=== PATIENT | male | born 1965 | race Caucasian/White ===

== ENCOUNTER 2019-11-15 04:56 | Emergency (ER) | payer SELFPAY ==
[~2019-11-15] VITALS: Ht 175.3 cm; Wt 78.0 kg
[2019-11-15 04:59] VITALS: BP 117/61
--- NOTE | 2019-11-15 05:05 | NUR ---
PT PRESENTS TO THE ED VIA EMS AFTER HE WAS FOUND UNABLE TO AMBULATE OUTSIDE A CASINO. PT STATES "I DRINK A LOT" "STRAIGHT VODKA." PT KNOWS WHO HE IS AND THAT HE'S DRUNK. DOESN'T KNOW WHERE HE IS. PT LAYING IN [facility], CONNECED TO CARDIAC, BP AND O2 MONITORS. URINAL IN REACH. LIGHTS OFF TO PROMOTE REST. BED RAILS UP X2, CALL LIGHT IN REACH.
--- NOTE | 2019-11-15 06:03 | NUR ---
PRIOR TO D/C, PT WAS MASTERBATTING. STATES "I WANT TO GET THE F OUT FO HERE." PULLED OUT A BOTTLE OF VODKA TO ATTEMPT TO START DRINKING WHILE IN THE HOSPITAL. PT DID NOT CONSUME ALCOHOL ON PROPERTY. PT AMBULATROY AROUND UNIT AFTER HE REMOVED ALL OF HIS LEADS AND DISCONNECTED SELF FROM MONITORS.
== END 2019-11-15 06:02 | disposition home or self-care (01) ==
LOC: ED 05:51
DX: F10.220 Alcohol dependence with intoxication, uncomplicated (principal); Y90.0 Blood alcohol level of less than 20 mg/100 ml
CPT/HCPCS: 99283

== ENCOUNTER 2020-03-13 11:27 | Emergency (ER) | payer MEDICAID ==
[~2020-03-13] VITALS: Ht 175.3 cm; Wt 72.0 kg
[2020-03-13] MEDS ORDERED: SODIUM CHLORIDE FLUSH 10ML SYR IVF ONE (12:00)
[2020-03-13] MEDS ORDERED: SODIUM CHLORIDE 0.9% 1,000ML IVBOLUS ONE (12:00)
[2020-03-13] MEDS ORDERED: ADENOSINE 6 MG/2 ML IVPush ONE ×2 (12:00)
[2020-03-13] MEDS ORDERED: PLEASE ENTER HEIGHT AND WEIGHT MC SCH (12:00)
[2020-03-13 12:06] LABS: BASOPHILS % (AUTO) 1 % (0-1); EOSINOPHILS % (AUTO) 1 % (1-7); LYMPHOCYTES % (AUTO) 27 % (22-44); MEAN CORPUSCULAR HEMOGLOBIN 25.1 pg (27.5-34.5); MEAN CORPUSCULAR HGB CONC 32.5 g/dL (33.2-36.2); MEAN PLATELET VOLUME 8.4 fL (7.4-10.4); MONOCYTES % (AUTO) 9 % (2-9); NEUTROPHILS % (AUTO) 62 % (42-75); PLATELET COUNT 420 x10^3/uL (130-400); RED CELL DISTRIBUTION WIDTH 20.7 % (9.4-14.8)
[2020-03-13 12:07] LABS: MD NO
[2020-03-13 12:17] LABS: ALBUMIN 3.5 g/dL (3.4-5.0); ANION GAP 6 mmol/L (5-15); CALCIUM 9.5 mg/dL (8.5-10.1); CHLORIDE 108 mmol/L (98-107)
[2020-03-13 12:22] LABS: ALANINE AMINOTRANSFERASE 18 U/L (12-78); ALKALINE PHOSPHATASE 57 U/L (45-117); BILIRUBIN,TOTAL 0.4 mg/dL (0.2-1.0); CREATININE 1.12 mg/dL (0.7-1.3); TOTAL PROTEIN 7.4 g/dL (6.4-8.2); TROPONIN I < 0.015 ng/mL (0.000-0.045)
[2020-03-13 13:27] VITALS: BP 103/71
== END 2020-03-13 19:55 ==
LOC: ED 14:48
DX: I47.1 Supraventricular tachycardia (principal); I48.91 Unspecified atrial fibrillation; R42 Dizziness and giddiness
CPT/HCPCS: 36415; 80053; 83735; 84443; 84484; 85025; 93005; 96360; 99284; J7030

== ENCOUNTER 2020-10-12 07:44 | Inpatient (IN) | payer MEDICAID ==
[~2020-10-12] VITALS: Ht 175.3 cm; Wt 74.2 kg
--- NOTE | 2020-10-12 07:49 | NUR ---
PT BIB EMS FOR CP, ETOH AND METH USE. STARTED THIS AM W NAUSEA. HX OF ETOH, HTN, SVT, NONCOMPLIANT W MEDS, METOPROLOL. PT ON CARD MONITOR, EKG IN PROCESS 4MG ZOFRAN 324 ASA BY EMS
[2020-10-12] MEDS ORDERED: THIAMINE 100MG TABLET PO ONE (08:00)
[2020-10-12] MEDS ORDERED: NITROGLYCERIN SINGLE TAB 0.4 MG SL PRN (08:00)
[2020-10-12] MEDS ORDERED: SODIUM CHLORIDE FLUSH 10ML SYR IVF ONE (08:00)
[2020-10-12] MEDS ORDERED: SODIUM CHLORIDE 0.9% 1,000 ML IV ONE ×2 (08:00→10:30)
[2020-10-12] MEDS ORDERED: ASPIRIN 81 MG TABLET CHEW PO ONE (08:00)
[2020-10-12] MEDS ORDERED: LORazepam 2 MG/ML, 1ML IVPush ONE (08:00)
[2020-10-12] MEDS ORDERED: LORazepam 2 MG/ML, 1ML ONE (08:09)
--- NOTE | 2020-10-12 08:16 | NUR ---
PT TREMULOUS, ANXIOUS. CXR, LABS DONE
[2020-10-12 08:24] LABS: BASOPHILS % (AUTO) 1 % (0-1); EOSINOPHILS % (AUTO) 1 % (1-7); LYMPHOCYTES % (AUTO) 19 % (22-44); MEAN CORPUSCULAR HEMOGLOBIN 28.5 pg (27.5-34.5); MEAN CORPUSCULAR HGB CONC 33.9 g/dL (33.2-36.2); MEAN PLATELET VOLUME 7.7 fL (7.4-10.4); MONOCYTES % (AUTO) 7 % (2-9); NEUTROPHILS % (AUTO) 72 % (42-75); PLATELET COUNT 276 x10^3/uL (130-400); RED BLOOD COUNT 4.67 x10^6/uL (4.38-5.82); RED CELL DISTRIBUTION WIDTH 18.1 % (9.4-14.8)
[2020-10-12 08:35] LABS: ALANINE AMINOTRANSFERASE 86 U/L (12-78); ALBUMIN 3.5 g/dL (3.4-5.0); ANION GAP 10 mmol/L (5-15); CALCIUM 9.1 mg/dL (8.5-10.1); CHLORIDE 108 mmol/L (98-107); CREATININE 0.85 mg/dL (0.7-1.3)
[2020-10-12 08:40] LABS: ALKALINE PHOSPHATASE 93 U/L (45-117); BILIRUBIN,TOTAL 0.6 mg/dL (0.2-1.0); TOTAL PROTEIN 7.5 g/dL (6.4-8.2); TROPONIN I 0.041 ng/mL (0.000-0.045)
--- NOTE | 2020-10-12 09:08 | NUR ---
PT SLEEPING AT THIS TIME. STATES CHEST PAIN IS BETTER. MD AT BEDSIDE
[2020-10-12] MEDS ORDERED: SODIUM CHLORIDE FLUSH 10ML SYR IVF PRN (10:30)
[2020-10-12] MEDS ORDERED: LORazepam 2 MG/ML, 1ML IVPush PRN (11:30)
[2020-10-12] MEDS ORDERED: ACETAMINOPHEN 325 MG TABLET PO PRN (11:30)
[2020-10-12] MEDS ORDERED: ONDANSETRON ODT 4 MG PO PRN (11:30)
[2020-10-12] MEDS ORDERED: POTASSIUM CHLORIDE 20 MEQ TAB.ER.PRT PO ONE (11:30)
[2020-10-12] MEDS ORDERED: ENALAPRILAT 1.25 MG/ML, 2ML IVPush PRN (11:30)
[2020-10-12] MEDS ORDERED: morphine SULFATE 10 MG/ML, 1ML IVPush PRN (11:30)
[2020-10-12] MEDS ORDERED: ONDANSETRON 2MG/ML, 2ML IVPush PRN (11:30)
[2020-10-12 11:51] LABS: TROPONIN I 0.036 ng/mL (0.000-0.045)
[2020-10-12 12:30] VITALS: BP 183/111
[2020-10-12] MEDS: METOPROLOL TARTRATE 25 MG TAB PO SCH ×2 (12:57→21:54)
[2020-10-12 14:55] VITALS: BP 169/106
[2020-10-12 17:04] LABS: TROPONIN I 0.035 ng/mL (0.000-0.045)
[2020-10-12 19:37] VITALS: BP 159/102
[2020-10-12 21:51] VITALS: BP 176/119
[2020-10-13] MEDS ORDERED: ENALAPRILAT 1.25 MG/ML, 1ML ONE (03:37)
[2020-10-13 03:38] VITALS: BP 168/109
[2020-10-13 05:09] VITALS: BP 164/104
[2020-10-13] MEDS: METOPROLOL TARTRATE 25 MG TAB PO SCH (05:11)
[2020-10-13 05:18] LABS: BASOPHILS % (AUTO) 1 % (0-1); EOSINOPHILS % (AUTO) 2 % (1-7); LYMPHOCYTES % (AUTO) 27 % (22-44); MEAN CORPUSCULAR HEMOGLOBIN 28.3 pg (27.5-34.5); MEAN CORPUSCULAR HGB CONC 33.1 g/dL (33.2-36.2); MEAN PLATELET VOLUME 7.9 fL (7.4-10.4); MONOCYTES % (AUTO) 11 % (2-9); NEUTROPHILS % (AUTO) 59 % (42-75); PLATELET COUNT 245 x10^3/uL (130-400); RED BLOOD COUNT 5.08 x10^6/uL (4.38-5.82)
[2020-10-13 05:31] LABS: ALBUMIN 3.5 g/dL (3.4-5.0); ANION GAP 4 mmol/L (5-15); CALCIUM 9.6 mg/dL (8.5-10.1); CHLORIDE 104 mmol/L (98-107)
[2020-10-13 05:36] LABS: ALANINE AMINOTRANSFERASE 74 U/L (12-78); ALKALINE PHOSPHATASE 100 U/L (45-117); BILIRUBIN,TOTAL 1.3 mg/dL (0.2-1.0); CREATININE 0.85 mg/dL (0.7-1.3); TOTAL PROTEIN 7.7 g/dL (6.4-8.2)
[2020-10-13] MEDS ORDERED: REGADENOSON 0.4 MG/5 ML SYRINGE ONE (07:41)
[2020-10-13 07:49] VITALS: BP 136/80
[2020-10-13] MEDS ORDERED: SENNA/DOCUSATE TABLET PO SCH (09:00)
[2020-10-13] MEDS ORDERED: ASPIRIN 325 MG TABLET PO SCH (09:00)
[2020-10-13 14:56] VITALS: BP 165/90
== END 2020-10-13 15:01 | disposition home or self-care (01) | DRG 198 ==
LOC: SUATTDRO 09:36 → ED 09:45 → EDIP 10:01 → INTOOBSV 10:01 → 5SO 12:24 → OBSVTOIN 10-13 10:12
PROVIDERS: ADMIT Hospitalist; ATTEND Hospitalist
DX: I20.0 Unstable angina (principal); I48.91 Unspecified atrial fibrillation; F15.129 Other stimulant abuse with intoxication, unspecified; F10.239 Alcohol dependence with withdrawal, unspecified; F41.9 Anxiety disorder, unspecified; I10 Essential (primary) hypertension; Z91.19 Patient's noncompliance with other medical treatment and regimen; Y90.9 Presence of alcohol in blood, level not specified
CPT/HCPCS: 36415; 71045; 78452; 80053; 83735; 83880; 84484; 85025; 93005; 93017; 93306; G0378; J2785; A9502; J2060; J7030

== ENCOUNTER 2020-10-15 07:05 | Emergency (ER) | payer MEDICAID ==
[~2020-10-15] VITALS: Ht 175.3 cm; Wt 77.3 kg
[2020-10-15] MEDS ORDERED: ASPIRIN 81 MG TABLET CHEW PO ONE (07:30)
[2020-10-15] MEDS ORDERED: LORazepam 1MG TABLET PO ONE (07:30)
[2020-10-15] MEDS ORDERED: LORazepam 1MG TABLET ONE (07:51)
[2020-10-15] MEDS ORDERED: ASPIRIN 81 MG TABLET CHEW ONE (07:51)
--- NOTE | 2020-10-15 07:56 | NUR ---
BIB EMS, PT C/O SHAKY, ABD PAIN, HEART RACING AFTER SNORTING METH AND DRINKING ALCOHOL. PT VERBALIZES "I BOUGHT WHAT LOOKED LIKE METH BUT WHEN I SNORTED IT IT WASN'T METH" "I DON'T KNOW WHAT IT WAS" ALEXANDRA, ED PA AT BEDSIDE, PT ASSESSMENT, POC DISCUSSED AND QUESTIONS ANSWERED. ALL MONITORS IN PLACE AND EKG COMPLETED. CALL LIGHT W/I REACH. PT MED NOTED AND LIGHTS OFF PER PT REQUEST.
[2020-10-15 08:03] LABS: BASOPHILS % (AUTO) 1 % (0-1); EOSINOPHILS % (AUTO) 1 % (1-7); LYMPHOCYTES % (AUTO) 19 % (22-44); MEAN CORPUSCULAR HEMOGLOBIN 28.2 pg (27.5-34.5); MEAN CORPUSCULAR HGB CONC 33.4 g/dL (33.2-36.2); MEAN PLATELET VOLUME 7.8 fL (7.4-10.4); MONOCYTES % (AUTO) 8 % (2-9); NEUTROPHILS % (AUTO) 71 % (42-75); PLATELET COUNT 230 x10^3/uL (130-400); RED BLOOD COUNT 4.58 x10^6/uL (4.38-5.82); RED CELL DISTRIBUTION WIDTH 17.9 % (9.4-14.8)
[2020-10-15 08:15] LABS: ALBUMIN 3.7 g/dL (3.4-5.0); ANION GAP 10 mmol/L (5-15); CALCIUM 8.8 mg/dL (8.5-10.1); CHLORIDE 105 mmol/L (98-107)
[2020-10-15 08:21] LABS: ALANINE AMINOTRANSFERASE 65 U/L (12-78); ALKALINE PHOSPHATASE 92 U/L (45-117); BILIRUBIN,TOTAL 0.6 mg/dL (0.2-1.0); CREATININE 0.69 mg/dL (0.7-1.3); TOTAL PROTEIN 7.4 g/dL (6.4-8.2); TROPONIN I < 0.015 ng/mL (0.000-0.045)
--- NOTE | 2020-10-15 08:37 | NUR ---
PT SLEEPING, RESP EVEN, NON LABORED. NAD NOTED. VSS, SP02 = 98% ON 2L NC
[2020-10-15 09:05] VITALS: BP 157/97
--- NOTE | 2020-10-15 09:06 | NUR ---
Patient/Caregiver given discharge instructions and they have confirmed that they understand the instructions. Patient ambulatory with steady gait. NAD, all questions answered appropriately, denies additional needs at this time. No personal belongings left in room after discharge.
== END 2020-10-15 09:07 | disposition home or self-care (01) ==
LOC: ED 07:30
DX: F10.20 Alcohol dependence, uncomplicated (principal); F15.20 Other stimulant dependence, uncomplicated; R07.89 Other chest pain; R10.84 Generalized abdominal pain; R11.0 Nausea; I10 Essential (primary) hypertension; I48.91 Unspecified atrial fibrillation; I47.1 Supraventricular tachycardia; Y90.0 Blood alcohol level of less than 20 mg/100 ml
CPT/HCPCS: 36415; 71045; 80053; 84484; 85025; 93005; 99285

== ENCOUNTER 2020-10-21 10:30 | Emergency (ER) | payer MEDICAID ==
[~2020-10-21] VITALS: Ht 175.3 cm; Wt 75.0 kg
--- NOTE | 2020-10-21 10:35 | NUR ---
PT BIB [facility] FROM THE [facility] FOR SI. PT STATES HE WANTS TO HARM HIMSELF AND PLANS TO DRINK HIMSELF TO , PT ALSO STATES HE WANTS TO SHOOT HIMSELF BUT DOES NOT CURRENTLY HAD ACCESS TO A GUN. PT LAST DRINK WAS LAST NIGHT PRIOR TO GOING TO [facility]. PT TACHY ON MONITOR. AXOX4. PT BELONGINGS IN BAG. [facility] AT . MONITORS CONNECTED. PT IN SAFE ENVIRONMENT. SITTER IN VIEW.
--- NOTE | 2020-10-21 10:38 | NUR ---
PA AT BS FOR EVAL
--- NOTE | 2020-10-21 10:50 | NUR ---
XRAY AT BS
[2020-10-21] MEDS ORDERED: ONDANSETRON 2MG/ML, 2ML IVPush ONE (11:00)
[2020-10-21] MEDS ORDERED: SODIUM CHLORIDE 0.9% 1,000ML IVBOLUS ONE (11:00)
[2020-10-21] MEDS ORDERED: SODIUM CHLORIDE FLUSH 10ML SYR IVF ONE (11:00)
[2020-10-21] MEDS ORDERED: LORazepam 2 MG/ML, 1ML IVPush ONE ×2 (11:00→14:00)
[2020-10-21] MEDS ORDERED: ONDANSETRON 2MG/ML, 2ML ONE (11:25)
[2020-10-21] MEDS ORDERED: LORazepam 2 MG/ML, 1ML ONE ×2 (11:26→13:56)
--- NOTE | 2020-10-21 11:30 | NUR ---
PT MEDICATED PER EMAR. NADN. SINUS TACH ON MONITOR OTHER VITALS STABLE. BED IN LOWEST POSITION, PT IN SAFE ENVIRONMENT. SITTER IN VIEW.
[2020-10-21 11:50] LABS: BASOPHILS % (AUTO) 1 % (0-1); EOSINOPHILS % (AUTO) 2 % (1-7); LYMPHOCYTES % (AUTO) 24 % (22-44); MEAN CORPUSCULAR HGB CONC 34.1 g/dL (33.2-36.2); MEAN PLATELET VOLUME 8.5 fL (7.4-10.4); MONOCYTES % (AUTO) 11 % (2-9); NEUTROPHILS % (AUTO) 62 % (42-75); PLATELET COUNT 205 x10^3/uL (130-400); RED BLOOD COUNT 4.72 x10^6/uL (4.38-5.82); RED CELL DISTRIBUTION WIDTH 17.5 % (9.4-14.8)
[2020-10-21 12:03] LABS: ALANINE AMINOTRANSFERASE 50 U/L (12-78); ALBUMIN 3.2 g/dL (3.4-5.0); CALCIUM 8.9 mg/dL (8.5-10.1); CHLORIDE 105 mmol/L (98-107); CREATININE 0.68 mg/dL (0.7-1.3)
[2020-10-21 12:03] LABS: MICROSCOPIC NOT IND
[2020-10-21 12:05] LABS: ALKALINE PHOSPHATASE 90 U/L (45-117); TOTAL PROTEIN 7.2 g/dL (6.4-8.2); TROPONIN I < 0.015 ng/mL (0.000-0.045)
[2020-10-21 12:12] LABS: ANION GAP 6 mmol/L (5-15); SALICYLATE LEVEL < 1.7 mg/dL (2.8-20.0)
[2020-10-21 12:17] LABS: AMPHETAMINE SCREEN, URINE Negative (Negative); BARBITURATE SCREEN, URINE Negative (Negative); BENZODIAZEPINE SCREEN, URINE Negative (Negative); CANNABINOID SCREEN, URINE Negative (Negative); COCAINE SCREEN, URINE Negative (Negative); METHADONE SCREEN, URINE Negative (Negative); OPIATE SCREEN, URINE Negative (Negative)
--- NOTE | 2020-10-21 12:55 | NUR ---
REPORT TO JERRELL GOODWIN
--- NOTE | 2020-10-21 13:13 | NUR ---
REPORT FROM NICK ALLAN. PT RESTING IN BED. KIRSTEN STRIP MACHINE OPERATOR AT BEDSIDE FOR ASSESSMENT.
--- NOTE | 2020-10-21 14:14 | NUR ---
PT REMEDICATED WITH [facility] FOR S/S OF ETOH DT. PT REMAINS A&OX4, ABLE TO CARE FOR SELF. PT DENIES ANY SI TO WIRE TEMPERER, STATES WANTS TO DT FROM ETOH. PT OK TO GO TO [facility], ROOM AVAILABLE. PT GIVEN ALL BELONGINGS, AND IV D/C'D. PT VERBALIZED UNDERSTANDING OF D/C INSTRUCTIONS, TO TAKE TAXI TO [facility]. PT GIVEN TAXI VOUCHER. PT IN WC TO DISCHARGE DESK.
[2020-10-21 14:21] VITALS: BP 150/92
== END 2020-10-21 14:23 ==
LOC: ED 12:57
DX: F10.139 Alcohol abuse with withdrawal, unspecified (principal); I10 Essential (primary) hypertension; Z72.9 Problem related to lifestyle, unspecified; R11.0 Nausea; R07.89 Other chest pain; Y90.0 Blood alcohol level of less than 20 mg/100 ml
CPT/HCPCS: 36415; 71045; 80053; 80299; 80307; 80320; 81003; 83690; 84484; 85025; 93005; 96361; 96374; 96375; 96376; 99285; J2060; J2405; J7030; 80329; G0480